=== PATIENT | female | born 1950 | race Caucasian/White ===

== ENCOUNTER 2016-05-07 18:48 | Emergency (ER) | payer OTHER, MEDICARE ==
[~2016-05-07] VITALS: Ht 152.4 cm; Wt 45.4 kg
[~2016-05-07 18:48] MED LIST: ALPRAZOLAM0.5 M3 PO; AMLODIPINE BES2.5 MG PO; ASPIR 8181 MG PO; BUSPIRONE HCL5 MG PO; CLONAZEPAM0.5 MG PO; DILAUDID2 MG PO; HYDROCODONE/ACE1 TA1 PO; LEVOTHYROXINE0.2 M2 PO; LEVOTHYROXINE100 MC1 PO; LEVOTHYROXINE150 MCG PO; LEVOXYL0.112 MG PO; METOPROLOL SUCC25 MG PO; MIDODRINE HCL10 MG PO; PERCOCET 325 MG1 TA2 PO; PROAIR HFA8.5 GM INH; SIMVASTATIN40 MG PO; SPIRIVA 18 MCG18 MCG INH; TRAMADOL HCL50 M1 PO; TRIAMCINOL NAS; TYLENOL #31 TAB PO; ZOFRAN4 M1 PO; ZOFRAN4 M1 SL
[2016-05-07 19:07] VITALS: BP 108/67
--- NOTE | 2016-05-07 19:29 | ED UPPER/LOWER EXTREMITY COMPL ---
History of Present Illness General Chief Complaint: Lower Extremity Problems Stated Complaint: PAIN IN RT KNEE XS A FEW WEEK AGO WORSE TODAY Source: patient Exam Limitations: no limitations Vital Signs & Intake/Output Vital Signs & Intake/Output Vital Signs Date Time Temp Pulse Resp B/P Pulse O2 O2 Flow FiO2 Ox Delivery Rate 05/08 2039 80 05/07 1906 97.9 77 20 108/67 98 Room Air Allergies Coded Allergies: levetiracetam (Severe, BLINDNESS 05/24/15) clopidogrel (From PLAVIX) (Mild, RASH 05/24/15) Penicillins (RASH 05/24/15) Reconcile Medications Albuterol Sulfate (Proair Hfa) 8.5 GM HFA.AER.AD 2 PUF INH Q4-6 PRN PRN BREATHING PROBLEMS (Reported) Alprazolam 0.5 MG TAB 1 TAB PO BID PRN ANXIETY (Reported) Amlodipine Besylate 2.5 MG TABLET 1 TAB PO DAILY BP (Reported) Aspirin (Ecotrin) 81 MG TABLET.DR 1 TAB PO TID HEART (Reported) BUSPIRONE HCL (Buspirone HCl) 5 MG TABLET 1 TAB PO BID ANXIETY (Reported) Clonazepam 0.5 MG TABLET 1 TAB PO QPM SLEEP (Reported) Levothyroxine Sodium 150 MCG TABLET 1 TAB PO DAILY AC THYROID (Reported) Metoprolol Succinate 25 MG TAB.ER.24H 1 TAB PO DAILY BP (Reported) MIDODRINE HCL (Midodrine HCl) 10 MG TABLET 1 TAB PO TID BP (Reported) Naproxen 250 MG TABLET 1 TAB PO BID PRN pain/inflammation Simvastatin 40 MG TABLET 1 TAB PO QPM CHOLESTEROL (Reported) Tiotropium [place] (Spiriva) 18 MCG CAP.W.DEV 1 CAP INH DAILY EMPHASEMA ( Reported) Triamcinolone Acetonide 55 MCG/Actuation SPR 2 SPRAY ARIES DAILY NASAL CONGESTION (Reported) Triage Note: RECEIVED 65 YO FEMALE C/O RIGHT KNEE PAIN X FEW WEEKS, MUCH WORSE THE LAST 5 TO 6 DAYS. PT DENIES INJURY. PAIN INCREASES WITH WEIGHT BEARING Triage Nurses Notes Reviewed? yes HPI: Patient is a 65-year-old female presents complaining of right knee pain for the past 5-6 days. Pain is bilateral and posterior, sharp pain, worsens with full extension of the knee and kneeling to the ground. Patient does not recall any inciting injury. Patient has been taking tramadol with moderate improvement but reports that she cannot take this medication on days that she needs to work. Patient denies fall, numbness (SANDOVAL RODRIGUEZ) Past History Travel History Traveled to [place] past 21 day No Medical History Any Pertinent Medical History? 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 Respiratory: emphysema Gastrointestinal: NONE Hepatic: NONE Renal: NONE Musculoskeletal: osteoporosis Psychiatric: NONE Endocrine: HYPOTHROIDISM Blood Disorders: NONE Cancer(s): ovarian cancer PASSENGER CONDUCTOR/Reproductive: NONE History of MRSA: No History of VRE: No History of CDIFF: No Surgical History Surgical History: VALVE REPLACEMENT CAROTIDENDARTECTOMY RT SHOULDER SX Psychosocial History Who do you live with Son Services at Home None What is your primary language Vietnamese Tobacco Use: Current Daily Use Daily Tobacco Use Amount/Type: => 5 Cigarettes daily Family History Hx Contributory? No (SANDOVAL RODRIGUEZ) Review of Systems Review of Systems Constitutional: Denies: fever. Cardiovascular: Denies: chest pain. Gastrointestinal/Abdominal: Denies: abdominal pain. Musculoskeletal: Reports: see HPI. Skin: Denies: erythema, lesions, rash. Neurological/Psychological: Denies: numbness, paresthesia. Hematologic/Endocrine: Denies: bruising, bleeding. Immunological: Denies: splenectomy. (SANDOVAL RODRIGUEZ) Physical Exam Physical Exam General Appearance: well developed/nourished, alert, awake Head: atraumatic, normal appearance Eyes: Bilateral: normal appearance. Ears, Nose, Throat: hearing grossly normal Neck: normal inspection, full range of motion Cardiovascular/Respiratory: normal peripheral pulses, no respiratory distress Peripheral Pulses: 2+ popliteal (R) Back: normal inspection, normal range of motion Leg Right: normal range of motion, normal inspection, nontender Hip Right: normal range of motion, normal inspection, nontender Knee Right: TENDERNESS MEDIAL AND LATERAL JOINT SPACE. mILD POSTERIOR TENDERNESS. nO PATELLAR TENDERNESS. nO ERYTHEMA OR WARMTH. fULL FLEXION. eXTENSION TO APPROXIMATELY 170 DEGREES. jOINT STABLE. (SANDOVAL RODRIGUEZ) Progress Differential Diagnosis: compartment syndrome, fracture, gout, sprain, tendon injury, arthritis, meniscus injury, ligamentous injury Plan of Care: Orders Procedure Date/time Status Durable Medical Equipment 05/07 2146 Active 05/07/2016 9:34:29 PM: Patient was discharged prior to official a true reading. Patient did not have a mechanism of injury consistent with fracture. Given radiology reading, patient was called and notified of the reading. Patient reports she can return to the ER in approximately [address] patient in knee immobilizer and have her follow up with orthopedics. Patient returned to ED and placed in knee immobilizer. (SANDOVAL RODRIGUEZ) Diagnostic Imaging: Viewed by Me: Radiology Read. (SANDOVAL RODRIGUEZ) Departure Departure Time of Disposition: 2022 Disposition: HOME OR SELF CARE Condition: Stable Clinical Impression Primary Impression: Arthritis of knee, right Referrals: BALDO CHAVARRIA,CASSIA CARCAMO MD,CHUY (PCP/Family) Additional Instructions: Ice, elevate, wear neisha wrap or a soft brace for support. Follow up with your orthopedist for further evaluation, call tomorrow for appointment. Return to the ER if you develop redness to your knee, fevers, decreasing range of motion or worsening of symptoms. Departure Forms: Customer Survey General Discharge Information Prescriptions: Current Visit Scripts Naproxen 1 TAB PO BID PRN pain/inflammation #7 TAB (SANDOVAL RODRIGUEZ) PA/BOOM CRANE OPERATOR Co-Sign Statement Statement: ED Attending supervision documentation- [] I saw and evaluated the patient. I have also reviewed all the pertinent lab results and diagnostic results. I agree with the findings and the plan of care as documented in the PA's/BOOM CRANE OPERATOR's documentation. [x] I have reviewed the ED Record and agree with the PA's/BOOM CRANE OPERATOR's documentation. [] Additions or exceptions (if any) to the PAs/BOOM CRANE OPERATOR's note and plan are summarized below: [] (KATT CHAVARRIA,ALFREDO Ardon)
[2016-05-07] MEDS ORDERED: NAPROXEN250 M1 PO (20:24)
--- NOTE | 2016-05-07 21:10 | RADIOLOGY REPORT ---
EXAMINATION: XR KNEE, RIGHT CLINICAL INFORMATION: Severe right knee pain. COMPARISON: No relevant prior imaging is available. TECHNIQUE: Four views of the right knee. FINDINGS: There is a small suprapatellar joint effusion that appears to demonstrate a fat fluid level suggesting the presence of a lipohemarthrosis. This finding raises the question of an occult fracture. No clear evidence of a displaced fracture is evident on this examination. There is chondrocalcinosis of the medial and lateral menisci. The patellofemoral compartment is grossly unremarkable. IMPRESSION: There is a small lipohemarthrosis within the suprapatellar compartment that raises the suspicion of an occult fracture. A CT scan of the knee may provide better anatomic characterization.
[2016-06-21] MEDS ORDERED: TRAMADOL HCL50 M1 PO (09:17)
[2016-06-21] MEDS ORDERED: LEVOXY (09:17)
== END 2016-05-07 20:41 ==
LOC: ERH 18:48
DX: M17.9 Osteoarthritis of knee, unspecified (principal)
CPT/HCPCS: 73562-RT

== ENCOUNTER 2016-05-28 00:01 | Emergency (ER) | payer OTHER, MEDICARE ==
[~2016-05-28] VITALS: Ht 152.4 cm; Wt 44.9 kg
[~2016-05-28 00:01] MED LIST changes: +NAPROXEN250 M1 PO
--- NOTE | 2016-05-28 00:14 | ED GI/GU/ABDOMINAL COMPLAINT ---
History of Present Illness General Chief Complaint: Abdominal Pain/Flank Pain Stated Complaint: RIGHT SIDE ABD PAIN Source: patient Exam Limitations: no limitations Vital Signs & Intake/Output Vital Signs & Intake/Output Vital Signs Date Time Temp Pulse Resp B/P Pulse O2 O2 Flow FiO2 Ox Delivery Rate 05/28 0111 140/60 05/28 0041 98 Room Air Room Air 05/28 0014 99.0 82 16 99/59 95 Room Air Allergies Coded Allergies: levetiracetam (Severe, BLINDNESS 05/24/15) clopidogrel (From PLAVIX) (Mild, RASH 05/24/15) Penicillins (RASH 05/24/15) Reconcile Medications Albuterol Sulfate (Proair Hfa) 8.5 GM HFA.AER.AD 2 PUF INH Q4-6 PRN PRN BREATHING PROBLEMS (Reported) Alprazolam 0.5 MG TAB 1 TAB PO BID PRN ANXIETY (Reported) Amlodipine Besylate 2.5 MG TABLET 1 TAB PO DAILY BP (Reported) Aspirin (Ecotrin) 81 MG TABLET.DR 1 TAB PO TID HEART (Reported) BUSPIRONE HCL (Buspirone HCl) 5 MG TABLET 1 TAB PO BID ANXIETY (Reported) Clonazepam 0.5 MG TABLET 1 TAB PO QPM SLEEP (Reported) Levothyroxine Sodium 150 MCG TABLET 1 TAB PO DAILY AC THYROID (Reported) Metoprolol Succinate 25 MG TAB.ER.24H 1 TAB PO DAILY BP (Reported) MIDODRINE HCL (Midodrine HCl) 10 MG TABLET 1 TAB PO TID BP (Reported) Naproxen 250 MG TABLET 1 TAB PO BID PRN pain/inflammation Prednisone (Deltasone) 20 MG TABLET 1 TAB PO BID INFLAMMATION Simvastatin 40 MG TABLET 1 TAB PO QPM CHOLESTEROL (Reported) Tiotropium [place] (Spiriva) 18 MCG CAP.W.DEV 1 CAP INH DAILY EMPHASEMA ( Reported) Triamcinolone Acetonide 55 MCG/Actuation SPR 2 SPRAY ARIES DAILY NASAL CONGESTION (Reported) Triage Note: 65YO FEMALE TO TRIAGE W/CO R SIDED ABD PAIN THAT HAS BEEN INTERMITTENT SINCE LAST FRIDAY. TODAY CONSTANT. Triage Nurses Notes Reviewed? yes ? N Is pt currently ? No Onset: Gradual Duration: week(s): (1) Timing: recent history No Modifying Factors: none Associated Symptoms: abdominal pain, DISTENTION HPI: This is a 65-year-old female with significant past medical history of coronary disease, ovarian cancer status post ZOEY/BSO at the age of 31, aortic valve replacement who to the ER with chief complaint of right-sided abdominal pain that began last week. She states that it radiates to the back. It was initially on and off but now it is more persistent. She feels swollen on the right lower side. Denies any fever or chills at home but had a low-grade temperature triage. She's been eating normally. Denies any constipation or urinary symptoms. Her last colonoscopy was in 2005 which she states was normal. She does not follow up for routine CAT SCAN TECH screening. Past History Travel History Traveled to [place] past 21 day No Medical History Any Pertinent Medical History? 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 Respiratory: emphysema Gastrointestinal: NONE Hepatic: NONE Renal: NONE Musculoskeletal: osteoporosis Psychiatric: NONE Endocrine: HYPOTHROIDISM Blood Disorders: NONE Cancer(s): ovarian cancer CAT SCAN TECH/Reproductive: NONE History of MRSA: No History of VRE: No History of CDIFF: No Surgical History Surgical History: appendectomy, hysterectomy, VALVE REPLACEMENT CAROTIDENDARTECTOMY RT SHOULDER SX, OOPHORECTOMY Psychosocial History Who do you live with Son Services at Home None What is your primary language [place]ican Family History Hx Contributory? No Review of Systems Review of Systems Constitutional: Denies: chills, diaphoresis. EENTM: Reports: no symptoms. Respiratory: Denies: cough, short of breath. Cardiovascular: Denies: chest pain. GI: Reports: abdominal pain. Denies: constipation, diarrhea, nausea, vomiting. Genitourinary: Denies: discharge, dysuria. Musculoskeletal: Reports: back pain. Skin: Reports: no symptoms. Neurological/Psychological: Reports: no symptoms. Hematologic/Endocrine: Denies: bruising, bleeding, polyuria, polydipsia. Immunologic/Allergic: Denies: splenectomy. All Other Systems: Reviewed and Negative Physical Exam Physical Exam General Appearance: alert, awake, cachetic, mild distress, thin Head: atraumatic Eyes: Bilateral: normal appearance, PERRL. Ears, Nose, Throat, Mouth: hearing grossly normal, moist mucous membrane Neck: normal inspection, supple, full range of motion Respiratory: normal breath sounds, chest non-tender, no respiratory distress Cardiovascular: regular rate/rhythm Peripheral Pulses: 2+ radial (R), 2+ radial (L) Gastrointestinal: soft, tenderness (RLQ/SUPRAPUBIC/RIGHT MID ABD) Extremities: normal range of motion Neurologic/Psych: no motor/sensory deficits, awake, alert, oriented x 3 Skin: intact, normal color, warm/dry Core Measures ACS in differential dx? No Severe Sepsis Present: No Septic Shock Present: No Progress Differential Diagnosis: bowel obstruction, colon cancer, diverticulitis, MASS Plan of Care: Orders Procedure Date/time Status LACTIC ACID 05/28 320 Active URINALYSIS 05/28 20 Complete PARTIAL THROMBOPLASTIN TIME 05/28 20 Complete PROTHROMBIN TIME 05/28 20 Complete LACTIC ACID 05/28 20 Complete COMPREHENSIVE METABOLIC PANEL 05/28 20 Complete CBC WITHOUT DIFFERENTIAL 05/28 20 Complete Laboratory Tests 05/28/16 0046: Urinalysis LIGHT H, Urine Color STRAW, Urine Clarity CLEAR, Urine pH 6.0, Ur Specific [place] 1.015, Urine Protein NEG, Urine Ketones NEG, Urine Nitrite NEG, Urine Bilirubin NEG, Urine Urobilinogen 0.2, Ur Leukocyte Esterase SMALL H, Ur Microscopic SEDIMENT EXAMINED, Urine RBC 1-3, Urine WBC 1-3 H, Ur Epithelial Cells FEW, Urine Mucus FEW, Urine Hemoglobin SMALL H, Urine Glucose NEG 05/28/16 0035: Anion Gap 13, Estimated GFR 45 L, BUN/Creatinine Ratio 26.7 H, Glucose 91, Lactic Acid 0.7, Calcium 10.2, Total Bilirubin 0.5, AST 41 H, ALT 39, Alkaline Phosphatase 117, Total Protein 8.2, Albumin 4.4, Globulin 3.8, Albumin/Globulin Ratio 1.2, PT 11.5, INR 1.10, APTT 30, CBC w Diff NO MAN DIFF REQ, RBC 4.08 L, MCV 93.9, MCH 31.4 H, RDW 13.6, MPV 10.2, Gran % 55.7, Lymphocytes % 28.4, Monocytes % 11.8 H, Eosinophils % 3.3, Basophils % 0.8, Absolute Granulocytes 5.4, Absolute Lymphocytes 2.7, Absolute Monocytes 1.1 H, Absolute Eosinophils 0.3, Absolute Basophils 0.1, PUBS MCHC 33.4 LABS, CT SCAN, IV FLUIDS, IV TYLENOL ORDERED. CT RESULTS DISCUSSED WITH PATIENT. SHE WILL FOLLOW UP RESULTS WITH HER PCP. (JOSIE MD,EBONI) Diagnostic Imaging: Viewed by Me: CT Scan. Discussed w/RAD: CT Scan. Radiology Impression: PATIENT: CARLOS ALBERTO PAREKH PRESENT AGE: 65 PATIENT ACCOUNT NO: [id number] : 51 LOCATION: [facility] ORDERING PHYSICIAN: EBONI GALINDO MD SERVICE DATE: 05/28/16 EXAM TYPE: CAT - CT ABD & PELVIS W IV CONTRAST EXAMINATION: CT ABDOMEN AND PELVIS WITH CONTRAST CLINICAL INFORMATION: Right lower quadrant pain. COMPARISON: None. TECHNIQUE: Contiguous axial thin section helical images of the abdomen and pelvis were performed following the administration of 93 mL of intravenous Optiray 320. The data set was reformatted in the coronal and sagittal planes and reviewed on an independent workstation. DLP: 240 mGy-cm. FINDINGS: There is mild dependent bibasilar atelectasis. There is emphysematous change noted at the lung bases. The visualized lung bases are otherwise clear. The visualized portions of the heart are unremarkable. The liver is of normal size and attenuation without focal lesions nor intrahepatic biliary ductal dilation. A normal gallbladder is identified. There is no wall thickening or discernible pericholecystic fluid. The spleen, pancreas, adrenal glands are unremarkable. Both kidneys are of normal size and attenuation without hydronephrosis or nephrolithiasis. 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 Following the administration of IV contrast, prompt symmetric nephrograms are displayed. There is no abdominal free fluid. There is neither mesenteric nor retroperitoneal lymphadenopathy. Normal unopacified loops of small and large bowel are identified. There is no pelvic free fluid. The urinary bladder is unremarkable. There is neither pelvic nor inguinal lymphadenopathy. Bone windows: Neither sclerotic nor lytic bone lesions are identified. A right hip prosthesis is in place. Anterior to the right acetabulum best demonstrated on image 504/656, there is an ill-defined area of low attenuation measuring approximately 2.3 cm in greatest dimension this is worst within the right iliacus muscle. IMPRESSION: Ill-defined area of low attenuation within the right iliac is muscle anterior to the right acetabulum. This appearance is nonspecific, but could correspond to her situs. Correlate with physical exam. No evidence for acute abdominal or pelvic inflammatory or infectious processes. DICTATED BY: HANS TEMPLETON MD DATE/TIME DICTATED:05/28/16151 MANAGER TELEMETRY:JOSE DATE/TIME TRANSCRIBED:05/28/16151 CONFIDENTIAL, DO NOT COPY WITHOUT APPROPRIATE AUTHORIZATION. <Electronically signed in Other Vendor System> SIGNED BY: HANS TEMPLETON MD 05/28/16 0204 Initial ED EKG: none Departure Departure Time of Disposition: 233 Disposition: HOME OR SELF CARE Condition: Stable Clinical Impression Primary Impression: Abdominal pain Secondary Impressions: Inflammation Referrals: CHUY CARCAMO MD (PCP/Family) Additional Instructions: Take the tramadol as needed for pain. Take the prednisone as directed. Please follow up with Dr. Leger in the office regarding your CT scan findings. You may need further imaging if your symptoms persist. Departure Forms: Customer Survey General Discharge Information Prescriptions: Current Visit Scripts Prednisone (Deltasone) 1 TAB PO BID #6 TAB
[2016-05-28 01:16] LABS: ABSOLUTE BASOPHIL COUNT 0.1 /CUMM (0.0-0.2); ABSOLUTE EOSINOPHIL COUNT 0.3 /CUMM (0.0-0.7); ABSOLUTE GRANULOCYTE CT 5.4 /CUMM (1.4-6.5); ABSOLUTE LYMPH COUNT 2.7 /CUMM (1.2-3.4); ABSOLUTE MONOCYTE COUNT 1.1 /CUMM (0.10-0.60); BASOPHIL % 0.8 % (0.0-2.0); EOSINOPHIL % 3.3 % (0-5); GRANULOCYTE % 55.7 % (42.2-75.2); HEMATOCRIT 38.3 % (37-47); MEAN CORPUSCULAR HGB 31.4 PG (27.0-31.0); MEAN CORPUSCULAR HGB CONC 33.4 G/DL (33.0-37.0); MEAN CORPUSCULAR VOLUME 93.9 FL (81.0-99.0); MEAN PLATELET VOLUME 10.2 FL (7.4-10.4); PLATELET COUNT 152 /CUMM (130-400); RBC DISTRIBUTION WIDTH 13.6 % (11.5-14.5); RED BLOOD CELL CT 4.08 /CUMM (4.20-5.40); WHITE BLOOD CELL COUNT 9.6 /CUMM (4.8-10.8)
[2016-05-28 01:32] LABS: PT 11.5 SEC (9.4-12.5); PTT 30 SEC (25-37)
--- NOTE | 2016-05-28 02:04 | CT SCAN REPORT ---
EXAMINATION: CT ABDOMEN AND PELVIS WITH CONTRAST CLINICAL INFORMATION: Right lower quadrant pain. COMPARISON: None. TECHNIQUE: Contiguous axial thin section helical images of the abdomen and pelvis were performed following the administration of 93 mL of intravenous Optiray 320. The data set was reformatted in the coronal and sagittal planes and reviewed on an independent workstation. DLP: 240 mGy-cm. FINDINGS: There is mild dependent bibasilar atelectasis. There is emphysematous change noted at the lung bases. The visualized lung bases are otherwise clear. The visualized portions of the heart are unremarkable. The liver is of normal size and attenuation without focal lesions nor intrahepatic biliary ductal dilation. A normal gallbladder is identified. There is no wall thickening or discernible pericholecystic fluid. The spleen, pancreas, adrenal glands are unremarkable. Both kidneys are of normal size and attenuation without hydronephrosis or nephrolithiasis. 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 Following the administration of IV contrast, prompt symmetric nephrograms are displayed. There is no abdominal free fluid. There is neither mesenteric nor retroperitoneal lymphadenopathy. Normal unopacified loops of small and large bowel are identified. There is no pelvic free fluid. The urinary bladder is unremarkable. There is neither pelvic nor inguinal lymphadenopathy. Bone windows: Neither sclerotic nor lytic bone lesions are identified. A right hip prosthesis is in place. Anterior to the right acetabulum best demonstrated on image 504/656, there is an ill-defined area of low attenuation measuring approximately 2.3 cm in greatest dimension this is worst within the right iliacus muscle. IMPRESSION: Ill-defined area of low attenuation within the right iliac is muscle anterior to the right acetabulum. This appearance is nonspecific, but could correspond to her situs. Correlate with physical exam. No evidence for acute abdominal or pelvic inflammatory or infectious processes.
[2016-05-28] MEDS ORDERED: DELTASONE20 MG PO (02:36)
[2016-05-28 02:48] VITALS: BP 113/56
[2016-06-21] MEDS ORDERED: TRAMADOL HCL50 M1 PO (09:17)
[2016-06-21] MEDS ORDERED: LEVOXY (09:17)
== END 2016-05-28 02:56 ==
LOC: ERH 00:01
PROVIDERS: Emergency Medicine
DX: R10.9 Unspecified abdominal pain (principal)
CPT/HCPCS: 74177; 81001; 96361; 96374; J0131

== ENCOUNTER → 2016-06-24 | Day surgery (SDC) | payer OTHER, MEDICARE ==
[~2016-06-24] VITALS: Ht 152.4 cm; Wt 46.3 kg
[~2016-06-24] MED LIST changes: +DELTASONE20 MG PO; +LEVOXY
--- NOTE | 2016-06-24 14:48 | Operative Report ---
Operative/Inv Procedure Report Surgery Date: 06/24/16 Name of Procedure: #1 right knee arthroscopic partial medial meniscectomy #2 right knee arthroscopic partial lateral meniscectomy Pre-Operative Diagnosis: #1 right knee medial meniscal tear #2 right knee lateral meniscal tear Post-Operative Diagnosis: Same Estimated Blood Loss: scant Surgeon/Insurance Account Representative: BALDO CHAVARRIA,CASSIA Anesthesia: laryngeal mask airway Specimens: None Tourniquet: None used Complications: None Condition: Stable Operative Indication: Patient is a 65-year-old woman who has a history of right knee pain following injury. Minimal relief with normal conservative measures of treatment. MRI evaluation revealed medial and lateral meniscal pathology. Due to persistent pain and difficulty returning to her normal activities, she wished to proceed with arthroscopic management of the meniscal pathology. Risks, benefits and expectations of surgical and further nonsurgical options were discussed including but not limited to knee pain, need for subsequent surgery, infection, anesthesia risks, progression of osteoarthritis Operative/Procedure Note Note: Patient was brought to the operating room and transferred to the operating table. Once under appropriate anesthesia the right lower extremity was prepped and draped in standard fashion. Preoperative IV antibiotics were given prophylactically. A standard infrapatellar lateral portal site was established. Scope was inserted. Patellofemoral compartment was visualized. This compartment was found to be within normal limits. I entered the medial compartment in doing so there was no evidence of pathologic plica. The medial meniscus was found to be intact from its anterior horn to its mid body. There was evidence of complex degenerative type tearing of the posterior horn. This was confirmed after establishing a medial infrapatellar portal site under direct vision. Biter followed by shaver was used to remove the degenerative complex medial meniscal tear. I was satisfied with the remaining rim of the posterior horn. This was done and confirmed with probing. After irrigation of the medial compartment I entered the notch. The ACL was found to be intact. I placed the leg into a figure 4 position to evaluate the lateral compartment. The lateral meniscus from revealed a degenerative complex tearing of the mid body posterior horn. Again I used the biter/right-sided angle biter followed by shaver to complete the partial lateral meniscectomy. There were changes consistent with grade 1-2 chondromalacia lateral compartment. I entered the lateral gutter no evidence of loose bodies. I went up to the patellofemoral compartment and copiously irrigated the suprapatellar pouch. All fluid and some his were removed and the portal sites were closed with interrupted nylon sutures. Appropriate dressings were applied and patient was awakened and taken to recovery room in good condition. No intraoperative complications. Blood loss was minimal Discharge Disposition: PACU
== END ==
LOC: STS 03:40
DX: M23.221 Derangement of posterior horn of medial meniscus due to old tear or injury, right knee (principal); M23.251 Derangement of posterior horn of lateral meniscus due to old tear or injury, right knee; I10 Essential (primary) hypertension; J44.9 Chronic obstructive pulmonary disease, unspecified; E03.9 Hypothyroidism, unspecified; E78.5 Hyperlipidemia, unspecified; F17.200 Nicotine dependence, unspecified, uncomplicated; Z79.82 Long term (current) use of aspirin
CPT/HCPCS: J0131; J2250

== ENCOUNTER 2017-03-30 00:30 | Emergency (ER) | payer OTHER, MEDICARE ==
[~2017-03-30] VITALS: Ht 152.4 cm; Wt 43.5 kg
[~2017-03-30 00:30] MED LIST changes: +ALPRAZOLAM0.5 M4 PO; +AMLODIPINE BES2.5 M1 PO; -AMLODIPINE BES2.5 MG PO; -ASPIR 8181 MG PO; +ASPIRIN EC81 M1 PO; +BUSPIRONE HCL5 M1 PO; +CLONAZEPAM0.5 M2 PO; +LEVOTHYROXINE50 MCG PO; +METOPROLOL SUCC25 M1 PO; +MIDODRINE HCL10 M1 PO; +SIMVASTATIN40 M1 PO
[2017-03-30 00:43] VITALS: BP 148/62
--- NOTE | 2017-03-30 02:40 | ED NECK/BACK PAIN COMPLAINT ---
History of Present Illness General Chief Complaint: Low Back Pain/Injury Stated Complaint: LOWER BACK PAIN Source: patient, old records Exam Limitations: no limitations Vital Signs & Intake/Output Vital Signs & Intake/Output Vital Signs Date Time Temp Pulse Resp B/P B/P Pulse O2 O2 Flow FiO2 Mean Ox Delivery Rate 03/30 0043 96.5 96 16 148/62 97 Room Air Room Air Allergies Coded Allergies: levetiracetam (Severe, BLINDNESS 05/24/15) clopidogrel (From PLAVIX) (Mild, RASH 05/24/15) Penicillins (RASH 05/24/15) codeine (RASH, ITCHING 11/29/16) Reconcile Medications Albuterol Sulfate (Proair Hfa) 8.5 GM HFA.AER.AD 2 PUF INH Q4-6 PRN PRN BREATHING PROBLEMS (Reported) Alprazolam 0.5 MG TABLET 1 TAB PO AD PRN ANXIETY (Reported) Amlodipine Besylate 2.5 MG TABLET 1 TAB PO DAILY BP (Reported) Aspirin (Ecotrin*) 81 MG TABLET.DR 1 TAB PO BID HEART/BLOOD (Reported) Baclofen 10 MG TABLET 1 TAB PO TIDPRN PRN muscle spasm/strain Buspirone HCl 5 MG TABLET 1 TAB PO BID ANXIETY (Reported) Clonazepam 0.5 MG TABLET 1 TAB PO QHS SLEEP/ANXIETY (Reported) Levothyroxine Sodium 50 MCG TABLET 1 TAB PO DAILY THYROID (Reported) Metoprolol Succinate 25 MG TAB 1 TAB PO DAILY HEART/BP (Reported) Midodrine HCl 10 MG TABLET 1 TAB PO TID BP (Reported) Oxycodone HCl 5 MG TABLET 1 TAB PO Q6P severe pain Simvastatin (Simvastatin*) 40 MG TABLET 1 TAB PO QPM CHOLESTEROL (Reported) Tramadol HCl 50 MG TABLET 1 TAB PO Q6H PRN PAIN (Reported) Triage Note: 66YO FEMALE TO TRIAGE W/CO LBP SP FALL ON FRI EVENING. STATES SHE "WAS SEEN BY HER PMD, USED ICY HOT PATCHES W/OUT RELIEF" Triage Nurses Notes Reviewed? yes Onset: Last week Duration: day(s):, constant, continues in ED Timing: recent history Quality/Severity: moderate, sharpness Location: lumbar spine Radiation: none Context: fall/near fall Method of Injury: direct blow, fall Loss of Consciousness: no loss of consciousness Modifying Factors: movement, rest LMP (ages 10-50): post menopausal : No Patient currently breastfeeds: No HPI: 4 days prior to admission patient slipped on icy sidewalk landing on her lumbar spine. She complains of continued sharp moderate to severe nonradiating constant pain worse with movement palpation recumbency. She denies fever chills nausea vomiting diarrhea abdominal pain chest pain shortness breath headache dysuria rash bleeding change in motor sensory function change in bowel bladder habit. Past History Travel History Traveled to [place] past 21 day No Medical History Any Pertinent Medical History? 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 Respiratory: emphysema Gastrointestinal: NONE Hepatic: NONE Renal: NONE Musculoskeletal: osteoporosis Psychiatric: NONE Endocrine: HYPOTHROIDISM Blood Disorders: NONE Cancer(s): ovarian cancer FACTORY EXPERT/Reproductive: NONE History of MRSA: No History of VRE: No History of CDIFF: No Surgical History Surgical History: appendectomy, hysterectomy, VALVE REPLACEMENT CAROTIDENDARTECTOMY RT SHOULDER SX OOPHORECTOMY Psychosocial History Who do you live with Son Services at Home None What is your primary language Cambodian Tobacco Use: Refused to answer Family History Family History, If Any: MOTHER Alzheimer's disease Hx Contributory? No Review of Systems Review of Systems Constitutional: Reports: no symptoms. Eyes: Reports: no symptoms. Ears, Nose, Throat, Mouth: Reports: no symptoms. Respiratory: Reports: no symptoms. Cardiovascular: Reports: no symptoms. Gastrointestinal/Abdominal: Reports: no symptoms. Musculoskeletal: Reports: see HPI, back pain. Skin: Reports: no symptoms. Neurological/Psychological: Reports: no symptoms. All Other Systems: Reviewed and Negative Physical Exam Physical Exam General Appearance: well developed/nourished, mild distress Head: atraumatic Eyes: Bilateral: PERRL, EOMI. Ears, Nose, Throat, Mouth: hearing grossly normal Neck: normal inspection, supple, full range of motion, normal alignment Respiratory: normal breath sounds Cardiovascular: regular rate/rhythm Peripheral Pulses: 2+ carotid (R), 2+ carotid (L) Gastrointestinal: normal bowel sounds, soft, non-tender, no organomegaly Back: normal inspection, normal range of motion, vertebral tenderness Extremities: non-tender, normal range of motion, no ligament instability Straight Leg Raising: Right: Negative. Left: Negative. Sensory: Medial Le: L4R, L4L. Motor: Deficit L4 Right: No Deficit L4 Left: No Deficit L5 Right: No Deficit L5 Left: No Deficit S1 Right: No Deficit S1 Right: No DTR: Deficit L4 Left: No Deficit L4 Right: No Deficit S1 Left: No Patellar: 3: L4 Right, L4 Left. 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 Discussed w/RAD: Radiology Read. Radiology Impression: no acute abnormality, no fracture, no dislocation Departure Departure Time of Disposition: 330 Disposition: HOME OR SELF CARE Condition: Stable Clinical Impression Primary Impression: Lumbar contusion Secondary Impressions: Fall at home Referrals: aGl Suresh MD (PCP/Family) Departure Forms: Customer Survey General Discharge Information Prescriptions: Current Visit Scripts Oxycodone HCl 1 TAB PO Q6P #15 TAB Baclofen 1 TAB PO TIDPRN PRN muscle spasm/strain #30 TAB Prescriptions: Current Visit Scripts Oxycodone HCl 1 TAB PO Q6P #15 TAB Baclofen 1 TAB PO TIDPRN PRN muscle spasm/strain #30 TAB
[2017-03-30] MEDS ORDERED: OXYCODONE HCL5 M1 PO (03:33)
[2017-03-30] MEDS ORDERED: BACLOFEN10 M1 PO (03:33)
--- NOTE | 2017-03-30 04:35 | RADIOLOGY REPORT ---
EXAMINATION: XR LUMBOSACRAL SPINE CLINICAL INFORMATION: Fall on ice COMPARISON: CT 05/28/2016 TECHNIQUE: 4 views of the lumbosacral spine were obtained. FINDINGS: Assessment is somewhat limited due to patient positioning. Alignment of the lumbar vertebral bodies and posterior elements appears anatomic. No definite acute fracture is seen. Vertebral body heights appear maintained. The sacroiliac joints are intact. Patient is status post right total hip arthroplasty. IMPRESSION: Somewhat limited assessment due to patient positioning. No definite acute findings.
== END 2017-03-30 03:54 ==
LOC: ERH 00:30
DX: S30.0XXA Contusion of lower back and pelvis, initial encounter (principal); W00.0XXA Fall on same level due to ice and snow, initial encounter; Y92.9 Unspecified place or not applicable; Y93.9 Activity, unspecified
CPT/HCPCS: 72110